=== PATIENT | female | born 1970 | race American Indian/Alaskan Native ===

== ENCOUNTER 2020-09-04 19:23 | Inpatient (IN) | payer MEDICARE ==
[2020-09-04] MEDS ORDERED: ASPIRIN 325 MG TAB PO ONE (21:17)
[2020-09-04 21:41] LABS: Basophils # (Auto) 0.1 K/mm3 (0.0-0.1); Basophils % (Auto) 1.5 % (0.0-1.8); Eosinophils # (Auto) 0.1 K/mm3 (0.0-0.4); Eosinophils % (Auto) 1.4 % (0.0-4.3); Hematocrit 37.6 % (30.3-42.9); Hemoglobin 12.5 gm/dl (10.1-14.3); Lymphocytes # (Auto) 2.5 K/mm3 (1.2-5.4); Lymphocytes % (Auto) 29.9 % (13.4-35.0); Mean Corpuscular HGB Conc 33 % (30-34); Mean Corpuscular Volume 85 fl (79-97); Monocytes # (Auto) 0.6 K/mm3 (0.0-0.8); Platelet Count 323 K/mm3 (140-440); Red Blood Count 4.41 M/mm3 (3.65-5.03); Red Cell Distribution Width 14.9 % (13.2-15.2)
[2020-09-04 22:06] LABS: Alanine Aminotransferase 12 units/L (7-56); Albumin 3.4 g/dL (3.9-5); BUN/Creatinine Ratio 12; Blood Urea Nitrogen 11 mg/dL (7-17); Hemolysis Index 9
--- NOTE | 2020-09-04 22:57 | XRay Report ---
CHEST 2 VIEWS INDICATION / CLINICAL INFORMATION: SOB. COMPARISON: None available. FINDINGS: SUPPORT DEVICES: None. HEART / MEDIASTINUM: No significant abnormality. LUNGS / PLEURA: Mild increased pulmonary vascularity. No focal consolidation No pneumothorax. Signer Name: Mohsen Sanchez MD Signed: 09/04/2020 10:53 PM Workstation Name: [id number]
--- NOTE | 2020-09-05 00:50 | Emergency Department Report ---
ED Shortness of Breath HPI - General Chief Complaint: Dyspnea/Respdistress Stated Complaint: SOB Time Seen by Provider: 09/05/20 00:31 Source: patient, family Mode of arrival: Wheelchair Limitations: No Limitations - History of Present Illness Initial Comments: 49-year-old female, history of hypertension, diabetes, CHF, atrial fibrillation (not on anticoagulation), PE (2007), morbid obesity, presents to ED with shortness of breath. Patient states 5 days ago she and her drove by car to [facility], then to [place] and back to [place]. She reports that she began having some dyspnea on exertion 2 days ago. She reports she noticed some facial swelling and swelling to her lower legs, that has since resolved. Patient denies any chest pain. She denies any orthopnea. She reports a slight cough, denies fever. Patient has not yet been vaccinated for COVID-19. Patient states she has been out of her medications for approximately 1 month. Patient reports she recently moved from [place] to [place] and has been having issues with her Medicaid being transferred to [place], so she has not been able to obtain refills on her medicines. Complaint: shortness of breath -: days(s) (2) Severity: moderate Consistency: intermittent Improves With: rest Worsens With: exertion Associated Symptoms: cough Treatments Prior to Arrival: none - Related Data Allergies Allergy/AdvReac Type Severity Reaction Status Date / Time No Known Allergies Allergy Verified 09/05/20 00:37 ED Review of Systems ROS: Stated complaint: SOB Other details as noted in HPI Comment: All other systems reviewed and negative Constitutional: denies: chills, fever Respiratory: cough, SOB with exertion. denies: orthopnea, SOB at rest Cardiovascular: denies: chest pain Musculoskeletal: other (Patient reports lower extremity swelling, denies pain) ED Past Medical Hx - Past Medical History Previous Medical History?: Yes Hx Hypertension: Yes Hx Congestive Heart Failure: Yes Hx Diabetes: Yes Additional medical history: AFIB, SHANNAN, high cholesterol - Surgical History Past Surgical History?: Yes Hx Cholecystectomy: Yes - Social History Smoking Status: Never Smoker Substance Use Type: None ED Physical Exam - General Limitations: No Limitations General appearance: alert, in no apparent distress, obese - Head Head exam: Present: atraumatic, normocephalic - Eye Eye exam: Present: normal appearance, EOMI - ENT ENT exam: Present: mucous membranes moist - Neck Neck exam: Present: normal inspection - Respiratory Respiratory exam: Present: normal lung sounds bilaterally, other (Slightly tachypneic) - Cardiovascular Cardiovascular Exam: Present: normal rhythm, tachycardia - GI/Abdominal GI/Abdominal exam: Present: soft. Absent: distended, tenderness - Extremities Exam Extremities exam: Present: normal inspection, calf tenderness (Mild, left- sided). Absent: pedal edema - Neurological Exam Neurological exam: Present: alert, oriented X3 - Psychiatric Psychiatric exam: Present: normal affect, normal mood - Skin Skin exam: Present: warm, dry, intact, normal color ED Course Vital Signs 09/04/20 09/05/20 09/05/20 21:11 00:55 02:00 Temperature 100 F H Pulse Rate 118 H 108 H 108 H Respiratory 24 11 L Rate Blood Pressure 227/125 Blood Pressure 236/111 233/149 [Right] O2 Sat by Pulse 98 95 Oximetry - Reevaluation(s) Reevaluation #1: 09/05/20 03:[address] scan secondary to IV infiltrating. Patient is a hard stick. Will order VQ scan. Reevaluation #2: 09/05/20 03:27 Contacted VQ scan tech who states patient's weight is over the limit. Unable to scan. ED Medical Decision Making - Lab Data Result diagrams: 09/04/20 21:29 09/04/20 21:29 - EKG Data -: EKG Interpreted by Me EKG shows normal: sinus rhythm, axis, intervals, QRS complexes Rate: tachycardia (rate 120) - EKG Data Interpretation: other (T wave inversions aVL) - Radiology Data Radiology results: report reviewed, image reviewed - Medical Decision Making 49-year-old female presents to ED with shortness of breath. Patient is tac hycardic, hypertensive. She is not hypoxic. Patient reports she has been off of her medications for approximately 1 month. This x-ray shows some pulmonary vascular congestion. Lasix given. D-dimer was also slightly elevated. CTA chest and VQ scan were attempted, but unsuccessful secondary to IV infiltration and patient's weight being over the limit. I spoke with Dr. Boggs for admission. We will treat prophylactically with Lovenox and they will try to get another CTA on patient while she is admitted. - Differential Diagnosis CHF, hypertensive emergency, PE Critical care attestation.: If time is entered above; I have spent that time in minutes in the direct care of this critically ill patient, excluding procedure time. ED Disposition Clinical Impression: Dyspnea, Pulmonary edema, Hypertensive emergency Disposition: -09 OP ADMIT IP TO THIS HOSP Is pt being admited?: Yes Condition: Stable Instructions: Pulmonary Edema (ED), Hypertension (ED) Referrals: PRIMARY CARE, [Primary Care Provider] - 3-5 Days Time of Disposition: 03:43
[2020-09-05] MEDS ORDERED: hydrALAZINE 20 MG/1 ML INJ IV ONE ×2 (00:56→18:50)
[2020-09-05 01:32] LABS: INR 1.12 (0.87-1.13)
[2020-09-05 01:33] LABS: Partial Thromboplastin Time 32.6 Sec. (24.2-36.6)
[2020-09-05] MEDS ORDERED: FUROSEMIDE 40 MG/4 ML INJ IV ONE (03:14)
[2020-09-05] MEDS ORDERED: ENOXAPARIN 100 MG/1 ML INJ SUB-Q ONE ×2 (03:30→06:00)
--- NOTE | 2020-09-05 03:54 | History and Physical Report ---
History of Present Illness Date of examination: 09/04/20 Date of admission: 09/04/20 Chief complaint: Shortness of breath Abdominal pain History of present illness: 49-year-old female, history of hypertension, diabetes, CHF, atrial fibrillation (not on anticoagulation), PE (2007), morbid obesity, presents to ED with shortness of breath. Patient states 5 days ago she and her drove by car to [facility], then to [place] and back to [place]. She reports that she began having some dyspnea on exertion 2 days ago. She reports she noticed some facial swelling and swelling to her lower legs, that has since resolved. Patient denies any chest pain. She denies any orthopnea. She reports a slight cough, denies fever. Patient has not yet been vaccinated for COVID-19. Patient states she has been out of her medications for approximately 1 month. Patient reports she recently moved from [place] to [place] and has been having issues with her Medicaid being transferred to [place], so she has not been able to obtain refills on her medicines. ED work-up shows WBC 8.3 hemoglobin 12.5, platelets 323 D-dimer 298.55, sodium 136, potassium 4.2, creatinine 0.9 blood sugar 270. Checks x-ray done mildly increased pulmonary vascularity. VQ scan ordered patient so is too heavy for VQ scan Mildly elevated D-dimer. Blood pressure in the ED 236/111, at 233/149, and 227/123. Patient has been given hydralazine, clonidine and IV furosemide in ED. patient blood pressure still elevated or out. Her home blood pressure medicine resumed. May transfer patient to MICU or ICU if blood pressure is continue to be elevated and blood pressure medicine drip. Patient seen in ED at bedside. Patient is alert oriented x3. Patient said she does not feel well. She reported nausea feeling and abdominal discomfort. She reports a history of diabetes, high blood pressure, CHF, and hyperlipidemia. She denies tobacco, alcohol, and illicit drug use. I reviewed the medication record, and medical record and vital signs. Past History Past Medical History: diabetes, heart failure, hyperlipidemia Past Surgical History: cholecystectomy Social history: lives with family Family history: diabetes, hypertension Medications and Allergies Allergies Allergy/AdvReac Type Severity Reaction Status Date / Time No Known Allergies Allergy Verified 09/05/20 00:37 Review of Systems Constitutional: weakness Ears, nose, mouth and throat: no epistaxis Cardiovascular: chest pain, shortness of breath, dyspnea on exertion, high blood pressure, leg edema Respiratory: no wheezing Gastrointestinal: abdominal pain, nausea, heartburn, no melena Rectal: no hemorrhoids Integumentary: no rash, no pruritis Neurological: no confusion Psychiatric: anxiety, no disorientation, no hallucinations Endocrine: high blood sugars Hematologic/Lymphatic: no easy bruising, no easy bleeding Allergic/Immunologic: no urticaria Exam - Constitutional Vitals: Temp Pulse Resp BP Pulse Ox 100 F H 108 H 11 L 227/125 95 09/04/20 21:11 09/05/20 02:00 09/05/20 00:55 09/05/20 02:00 09/05/20 00:55 General appearance: Present: mild distress, obese - EENT Eyes: Present: PERRL ENT: hearing intact, clear oral mucosa - Neck Neck: Present: supple, normal ROM - Respiratory Respiratory effort: normal Respiratory: bilateral: CTA - Cardiovascular Heart Sounds: Present: S1 & S2. Absent: rub, click - Extremities Extremities: pulses symmetrical, No edema Peripheral Pulses: within normal limits - Abdominal General gastrointestinal: Present: soft, non-tender, non-distended, normal bowel sounds Female genitourinary: Present: normal - Integumentary Integumentary: Present: clear, warm, dry - Musculoskeletal Musculoskeletal: gait normal, strength equal bilaterally - Psychiatric Psychiatric: appropriate mood/affect, intact judgment & insight, cooperative - Neurologic Neurologic: CNII-XII intact, moves all extremities - Allied Health Allied health notes reviewed: nursing, PT HEART Score - HEART Score Troponin: Troponin T 0.011 ng/mL (0.00-0.029) 09/05/20 00:21 Results - Labs CBC & Chem 7: 09/04/20 21:29 09/04/20 21:29 Labs: Abnormal lab results 09/04/20 09/05/20 09/05/20 Range/Units 21:29 00:59 00:59 D-Dimer 298.55 H (0-234) ng/mlDDU Sodium 136 L (137-145) mmol/L Glucose 270 H (65-100) mg/dL NT-Pro-B Natriuret Pep 1925 H (0-450) pg/mL Total Protein 6.2 L (6.3-8.2) g/dL Albumin 3.4 L (3.9-5) g/dL Assessment and Plan - Patient Problems (1) Hypertensive emergency Current Visit: Yes Status: Acute Plan to address problem: Monitor blood pressure As needed hydralazine Resume home antihypertensive. We will transfer to the unit on blood pressure medicine drip if blood pressure is not controlled Discussed medication compliance. (2) Pulmonary edema Current Visit: Yes Status: Acute Plan to address problem: Diuretics twice daily Serial checks x-ray Monitor potassium level while on furosemide (3) Acute on chronic diastolic CHF (congestive heart failure) Current Visit: Yes Status: Acute Plan to address problem: Patient with elevated BNP and patient has a history of CHF with A. fib Aspirin, statin, losartan, and oxygen supplement if needed Cardiology consult and echocardiogram ordered. (4) Morbid (severe) obesity due to excess calories Current Visit: Yes Status: Acute Plan to address problem: Discussed lifestyle modification Healthy diet, weight management regular exercise (5) Diabetes Current Visit: Yes Status: Acute Plan to address problem: Monitor blood sugar with sliding scale Check hemoglobin A1c Resume home antihypertensive (6) Gastritis Current Visit: Yes Status: Acute Plan to address problem: Patient reported abdominal pain with nausea as needed pain medicine Continue antiemetics (7) DVT prophylaxis Current Visit: Yes Status: Acute Plan to address problem: Therapeutic Lovenox
[2020-09-05] MEDS ORDERED: cloNIDine 0.2 MG TAB PO ONE (03:58)
[2020-09-05] MEDS ORDERED: MAGNESIUM HYDROXIDE (MOM) ORAL LIQD UDC PO PRN (04:04)
[2020-09-05] MEDS ORDERED: ALUM-MAG HYDROXIDE-SIMETHICONE 200-200-20MG/5ML ORAL LIQD 30 ML PO PRN (04:04)
[2020-09-05] MEDS ORDERED: NITROGLYCERIN 0.4 MG TAB SUBL SL PRN (04:04)
[2020-09-05] MEDS ORDERED: ALPRAZolam 0.25 MG TAB PO PRN (04:04)
[2020-09-05 05:41] LABS: Bilirubin,Urine NEG (Negative); Blood,Urine NEG (Negative); Color,Urine Yellow (Yellow); Mucus,Urine FEW /HPF; Urobilinogen,Urine < 2.0 mg/dL (<2.0)
[2020-09-05 05:43] LABS: Protein,Urine >500 mg/dL (Negative)
[2020-09-05] MEDS: FUROSEMIDE 40 MG/4 ML INJ IV SCH ×2 (06:04→17:35)
--- NOTE | 2020-09-05 07:26 | Cat Scan Report ---
CT ABDOMEN AND PELVIS WITHOUT CONTRAST HISTORY: Patient complains of abdominal pain with nausea. COMPARISON: None. TECHNIQUE: CT images of the abdomen and pelvis were obtained without administration of intravenous co ntrast. All CT scans at this location are performed using CT dose reduction for ALARA by means of au tomated exposure control. FINDINGS: Lungs/bones: Small bilateral effusions. Groundglass opacities with somewhat rounded densities within the right lower lung. Abdomen/pelvis: Within limits of a noncontrast exam the liver, spleen, adrenal glands and pancreas a ppear normal. Bilateral kidneys appear normal. Uterus is distended. Contrast is seen within the bladd er. No free fluid is seen in the abdomen or pelvis. No bowel obstruction is seen. No evidence for madeleine endicitis. Degenerative changes seen throughout spine. IMPRESSION: 1. Uterus is distended with probable uterine fibroids. 2. No bowel obstruction is seen. No focal inflammatory change. 3. Rounded densities and opacities within the lower lungs with bilateral effusions. Opacities could r epresent pneumonia/infiltrate however follow-up to document resolution. Signer Name: Mohsen Sanchez MD Signed: 09/05/2020 7:21 AM Workstation Name: [id number]
[2020-09-05] MEDS: hydrALAZINE 100 MG TAB PO SCH ×3 (07:42→20:10)
[2020-09-05] MEDS: INSULIN LISPRO 100 UNIT/ML SUB-Q SCH ×3 (07:43→17:35)
[2020-09-05] MEDS: ASPIRIN EC 81 MG TAB PO SCH (09:09)
[2020-09-05] MEDS: LOSARTAN 50 MG TAB PO SCH (09:09)
[2020-09-05] MEDS: POTASSIUM CHLORIDE ER 20 MEQ TAB PO SCH ×2 (09:10→22:38)
[2020-09-05] MEDS ORDERED: carvediloL 3.125 MG TAB PO SCH (10:00)
--- NOTE | 2020-09-05 12:20 | Vascular Lab Report ---
DUPLEX DOPPLER LOWER EXTREMITY VEINS, BILATERAL INDICATION / CLINICAL INFORMATION: Possible dvt. TECHNIQUE: Duplex doppler imaging was performed through the veins of both lower extremities using cory ous compression and other maneuvers. COMPARISON: None available. FINDINGS: RIGHT COMMON FEMORAL VEIN: Negative. RIGHT FEMORAL VEIN: Negative. RIGHT POPLITEAL VEIN: Negative. RIGHT CALF VEINS: Negative. LEFT COMMON FEMORAL VEIN: Negative. LEFT FEMORAL VEIN: Negative. LEFT POPLITEAL VEIN: Negative. LEFT CALF VEINS: Negative. ADDITIONAL FINDINGS: None. IMPRESSION: 1. No sonographic evidence for DVT in either lower extremity. Scribed by: Mayra Hughes RDMS, RVT Scribed: 09/05/2020 11:11 AM I have reviewed the images, agree with this report, and edited this report as needed. Signer Name: Keagan Crawley MD Signed: 09/05/2020 12:16 PM Workstation Name: [id number]
--- NOTE | 2020-09-05 13:19 | Consultation ---
History of Present Illness Consult date: 09/05/20 Requesting physician: JUANJOSE MEREDITH Consult reason: congestive heart failure History of present illness: This patient is a 49-year-old female with a significant history of CHF, A. fib (not on AC), diabetes, hypertension, pulmonary embolism 2007, SHANNAN noncompliant with CPAP, BMI 61. She is previously unknown to our practice and is not currently followed by cardiology or primary care. Patient presents to [facility] ER with chief complaint of shortness of breath and tachycardia x1 day. Patient recently traveled by car to [place] and back prior to onset of symptoms. She has previously been diagnosed with heart failure unknown EF and is prescribed home losartan and hydrochlorothiazide. Patient has been out of meds x30 days after recent move to [place] and no current providers. BNP is noted to be elevated on admission. D-dimer is noted to be elevated. Of note patient states significant allergy to lisinopril resulting in angioedema. Past History Past Medical History: diabetes, heart failure, hyperlipidemia, other (See HPI) Past Surgical History: cholecystectomy Social history: lives with family Family history: diabetes, hypertension Medications and Allergies Allergies Allergy/AdvReac Type Severity Reaction Status Date / Time No Known Allergies Allergy Verified 09/05/20 00:37 Active Meds: Active Medications Al Hydrox/Mg Hydrox/Simethicone (Alum-Mag Hydroxide-Simethicone [id number]/5ml Oral Liqd 30 Ml) 30 ml PO Q4H PRN PRN Reason: Indigestion Alprazolam (Alprazolam 0.25 Mg Tab) 0.25 mg PO Q8H PRN PRN Reason: Anxiety Aspirin (Aspirin Ec 81 Mg Tab) 81 mg PO QDAY [facility] Last Admin: 09/05/20 09:09 Dose: 81 mg Documented by: Carvedilol (Carvedilol 3.125 Mg Tab) 3.125 mg PO BID [facility] Last Admin: 09/05/20 09:09 Dose: 3.125 mg Documented by: Enoxaparin Sodium (Enoxaparin 100 Mg/1 Ml Inj) 180 mg 1 mg/kg (180 mg) SUB-Q Q12HR [facility]; Protocol Furosemide (Furosemide 40 Mg/4 Ml Inj) 40 mg IV BID@0600,1800 [facility] Last Admin: 09/05/20 06:04 Dose: Not Given Documented by: Hydralazine HCl (Hydralazine 100 Mg Tab) 100 mg PO TID [facility] Last Admin: 09/05/20 07:42 Dose: 100 mg Documented by: Insulin Human Lispro (Insulin Lispro 100 Unit/Ml) 0 unit SUB-Q AC [facility]; Protocol Last Admin: 09/05/20 07:43 Dose: 3 unit Documented by: Losartan Potassium (Losartan 50 Mg Tab) 100 mg PO QDAY [facility] Last Admin: 09/05/20 09:09 Dose: 100 mg Documented by: Magnesium Hydroxide (Magnesium Hydroxide (Mom) Oral Liqd Udc) 30 ml PO Q4H PRN PRN Reason: Constipation Nitroglycerin (Nitroglycerin 0.4 Mg Tab Subl) 0.4 mg SL .Q5MIN PRN PRN Reason: Chest Pain Ondansetron HCl (Ondansetron 4 Mg/2 Ml Inj) 4 mg IV Q8H PRN PRN Reason: Nausea And Vomiting Potassium Chloride (Potassium Chloride Er 20 Meq Tab) 20 meq PO BID [facility] Last Admin: 09/05/20 09:10 Dose: 20 meq Documented by: Sodium Chloride (Sodium Chloride 0.9% 10 Ml Flush Syringe) 10 ml IV BID [facility] Last Admin: 09/05/20 09:10 Dose: 10 ml Documented by: Sodium Chloride (Sodium Chloride 0.9% 10 Ml Flush Syringe) 10 ml IV PRN PRN PRN Reason: LINE FLUSH Review of Systems Constitutional: weight loss, weight gain, fever, chills, sweats Ears, nose, mouth and throat: ear pain, ear discharge, nose pain, nasal congestion, nasal discharge Cardiovascular: orthopnea, edema, shortness of breath, dyspnea on exertion, paroxysmal nocturnal dyspnea, high blood pressure, leg edema, no chest pain, no palpitations, no rapid/irregular heart beat, no syncope, no lightheadedness, no claudication, no phlebitis, no decreased exercise tolerance Respiratory: no cough, no hemoptysis, no shortness of breath Gastrointestinal: no abdominal pain, no nausea, no vomiting, no diarrhea Genitourinary Female: no flank pain Musculoskeletal: no neck stiffness, no neck pain, no shooting arm pain, no arm numbness/tingling, no low back pain, no shooting leg pain Integumentary: no rash, no pruritis, no redness, no sores, no wounds, no jaundice Neurological: no head injury, no paralysis, no weakness, no parathesias, no numbness, no tingling, no seizures, no syncope Psychiatric: no anxiety Endocrine: no cold intolerance, no heat intolerance Hematologic/Lymphatic: no easy bruising, no easy bleeding Allergic/Immunologic: no urticaria Physical Examination Last Vital Signs Temp 100 F H 09/04/20 21:11 Pulse 60 09/05/20 11:19 Resp 19 09/05/20 08:00 BP 184/100 09/05/20 09:09 Pulse Ox 100 09/05/20 11:19 General appearance: no acute distress HEENT: Positive: PERRL, Normocephaly, Mucus Membranes Moist Cardiac: Positive: Reg Rate and Rhythm, S1/S2 Lungs: Positive: Decreased Breath Sounds Neuro: Positive: Grossly Intact Abdomen: Positive: Unremarkable, Soft Skin: Negative: Rash, Wound Musculoskeletal: No Pain Extremities: Present: upper extr. pulses, lower extr. pulses, +1 Edema Results 09/04/20 21:29 09/04/20 21:29 Cardiac Enzymes 09/04/20 Range/Units 21:29 AST 13 (5-40) units/L Coagulation 09/05/20 Range/Units 00:59 PT 14.9 (12.2-14.9) Sec. INR 1.12 (0.87-1.13) APTT 32.6 (24.2-36.6) Sec. CBC 09/04/20 Range/Units 21:29 WBC 8.3 (4.5-11.0) K/mm3 RBC 4.41 (3.65-5.03) M/mm3 Hgb 12.5 (10.1-14.3) gm/dl Hct 37.6 (30.3-42.9) % Plt Count 323 (140-440) K/mm3 Lymph # (Auto) 2.5 (1.2-5.4) K/mm3 [place] # (Auto) 0.6 (0.0-0.8) K/mm3 Eos # (Auto) 0.1 (0.0-0.4) K/mm3 Baso # (Auto) 0.1 (0.0-0.1) K/mm3 Comprehensive Metabolic Panel 09/04/20 Range/Units 21:29 Sodium 136 L (137-145) mmol/L Potassium 4.2 (3.6-5.0) mmol/L Chloride 100.9 (98-107) mmol/L Carbon Dioxide 25 (22-30) mmol/L BUN 11 (7-17) mg/dL Creatinine 0.9 (0.6-1.2) mg/dL Glucose 270 H (65-100) mg/dL Calcium 9.0 (8.4-10.2) mg/dL AST 13 (5-40) units/L ALT 12 (7-56) units/L Alkaline Phosphatase 119 (35-129) units/L Total Protein 6.2 L (6.3-8.2) g/dL Albumin 3.4 L (3.9-5) g/dL - Imaging and Cardiology Echo: pending EKG: report reviewed, image reviewed EKG interpretations - Telemetry EKG Rhythm: Sinus Tachycardia - EKG Sinus rhythms and dysrhythmias: sinus tachycardia Assessment and Plan Acute on chronic heart failure reduced ejection fraction in setting of cardiomyopathy * Patient is currently chest pain-free with significantly improved shortness of breath. Troponins are negative x3. AMI ruled out. * Optimize volume control: Continue Lasix 40 mg IV twice daily. * Continue GDMT. Elevated D-dimer * Bilateral BLE duplex ultrasound is negative for DVT. * VQ scan canceled due to BMI. CTA chest incomplete due to infiltrated IV. * Currently on Lovenox therapeutic dose Hypertension * Optimize antihypertensive regimen: Increase Coreg to 12.5 twice daily, continue losartan 100 mg daily, nifedipine XL 90 daily. SHANNAN on CPAP * Patient states she has completed sleep study and been recommended to wear CPAP at night but is currently noncompliant due to insurance issues. CPAP nightly is ordered. DVT prophylaxis * Lovenox SQ We will follow This patient was seen in conjunction with Dr Jurgen Collins who agrees with this assessment and plan of care - Patient Problems (1) Acute on chronic diastolic CHF (congestive heart failure) Current Visit: Yes Status: Acute (2) Elevated d-dimer Current Visit: Yes Status: Acute (3) Hypertension Current Visit: Yes Status: Chronic (4) DVT prophylaxis Current Visit: Yes Status: Acute (5) Diabetes Current Visit: Yes Status: Chronic
--- NOTE | 2020-09-05 15:50 | Event Note ---
Date: 09/05/20 Patient seen and examined This is the second visit after midnight Vitals noted, stable Patient complains of nausea and difficulty to breathe, diminished breath sound auscultated bilaterally, S1 and S2 positive 49-year-old female, history of hypertension, diabetes, CHF, atrial fibrillation (not on anticoagulation), PE (2007), morbid obesity, presents to ED with shortness of breath. Patient noted to have elevated D-dimer but unable to do VQ scan because patient is overweight. CTA chest could not be done because iv got infiltrated. Continue therapeutic dose of Lovenox for now. Continue CHF protocol, lower extremity Dopplers negative for DVT We will attempt CTA of the chest again tomorrow Patient did not receive COVID-19 vaccine and due to her presenting complaint will Rule out for Covid Ordered for Covid test -It took me about 28 minutes to reevaluate and reasses this patient, discussed with RN/CM, review medical documents, lab results, imaging, medication list and placing order.
[2020-09-05] MEDS ORDERED: ACETAMINOPHEN 325 MG TAB PO PRN (17:37)
[2020-09-05] MEDS: ONDANSETRON 4 MG/2 ML INJ IV PRN (18:35)
[2020-09-05] MEDS ORDERED: METOCLOPRAMIDE 10 MG/2 ML INJ IV ONE (19:00)
[2020-09-05] MEDS ORDERED: ENOXAPARIN 100 MG/1 ML INJ SUB-Q SCH (22:00)
[2020-09-05] MEDS: carvediloL 3.125 MG TAB PO SCH (22:39)
[2020-09-06] MEDS ORDERED: dilTIAZem 25 MG/5 ML INJ IV ONE (04:00)
[2020-09-06] MEDS: FUROSEMIDE 40 MG/4 ML INJ IV SCH ×2 (05:42→19:42)
[2020-09-06] MEDS: ONDANSETRON 4 MG/2 ML INJ IV PRN (06:49)
[2020-09-06] MEDS: INSULIN LISPRO 100 UNIT/ML SUB-Q SCH ×3 (09:08→19:41)
[2020-09-06] MEDS: LOSARTAN 50 MG TAB PO SCH (09:42)
[2020-09-06] MEDS: carvediloL 3.125 MG TAB PO SCH (09:47)
[2020-09-06] MEDS: hydrALAZINE 100 MG TAB PO SCH ×3 (09:49→21:32)
[2020-09-06] MEDS: ASPIRIN EC 81 MG TAB PO SCH (09:49)
[2020-09-06] MEDS: POTASSIUM CHLORIDE ER 20 MEQ TAB PO SCH ×2 (09:49→21:39)
[2020-09-06] MEDS ORDERED: ENOXAPARIN 150 MG/1 ML INJ SUB-Q SCH (10:00)
[2020-09-06] MEDS: PANTOPRAZOLE 40 MG INJ IV SCH ×2 (12:56→21:38)
[2020-09-06] MEDS ORDERED: ONDANSETRON 4 MG/2 ML INJ IV PRN (13:00)
--- NOTE | 2020-09-06 14:15 | Progress Note ---
Assessment and Plan --Hypertensive emergency Monitor blood pressure As needed hydralazine Resumed home antihypertensive. Adjust antihypertensive dose for better BP control Discussed medication compliance. -- Pulmonary edema with Acute hypoxic Respiratory Failure Due to underlying CHF, diuretics twice daily Serial chest x-ray Monitor potassium level while on furosemide --Covid PUI, ruled out with a negative test -- Acute on chronic systolic CHF (congestive heart failure), EF 30 to 35% Patient with elevated BNP and patient has a history of CHF with A. fib Aspirin, statin, losartan, and oxygen supplement if needed Cardiology consult and echocardiogram ordered. -- Morbid (severe) obesity due to excess calories Discussed lifestyle modification Healthy diet, weight management regular exercise -- Diabetes Monitor blood sugar with sliding scale Check hemoglobin A1c -- Gastritis Patient reported abdominal pain with nausea as needed pain medicine, CT abdomen pelvis without any acute intra-abdominal finding Continue antiemetics, PPI Will consult GI for persistent symptoms -- DVT prophylaxis Therapeutic Lovenox Brief history: 49-year-old female, history of hypertension, diabetes, CHF, atrial fibrillation (not on anticoagulation), PE (2007), morbid obesity, presents to ED with shortness of breath. Patient noted to have elevated BNP and elevated D-dimer but unable to do VQ scan because patient is overweight. CTA chest could not be done because iv got infiltrated. Patient admitted for possible PE/DVT pain CHF exacerbation Daily clinical course: 09/05/20: Continue therapeutic dose of Lovenox for now. Continue CHF protocol, lower extremity Dopplers negative for DVT We will attempt CTA of the chest again tomorrow Patient did not receive COVID-19 vaccine and due to her presenting complaint will Rule out for Covid Ordered for Covid test 09/06/20:. Pending CTA chest today. Patient continued to complains of nausea and vomiting. Will consult GI, continue antiemetics and PPI. Change diet to clear liquid. Covid test is negative. 2D echo showed EF of 30 to 35%. Continue Lasix IV, transfer to telemetry when bed available Subjective Date of service: 09/06/20 Interval history: Patient seen and examined. Medical records and medication list reviewed. No acute event overnight noted by the RN. Patient denies any chest pain but continue to complains of difficulty breathing along with nausea and vomiting Discussed plan of care at bedside with patient. Objective - Exam Narrative Exam: GENERAL: well-developed morbidly obese -Mosoth[place] female lying on bed appeared to be in no discomfort. HEENT: Normocephalic. Atraumatic. No conjunctival congestion or icterus. Patient has moist mucous membranes. NECK: Supple. Trachea midline. CHEST/LUNGS: Diminished breath sounds auscultated bilaterally, breathing on nasal cannula. No wheezes HEART/CARDIOVASCULAR: Regular in rate and rhythm. S1 and S2 positive. ABDOMEN: Abdomen is soft, nontender. Patient has normal bowel sounds. SKIN: There is no rash. Warm and dry. NEURO: No focal motor deficit. Follows command. MUSCULOSKELETAL: No joint effusion or tenderness. EXTRIMITY: No edema, no cyanosis or clubbing. PSYCH: Cooperative. - Constitutional Vitals: Vital Signs - 12hr 09/06/20 09/06/20 09/06/20 05:17 09:42 09:47 Temperature 98.8 F Pulse Rate 116 H 111 H 111 H Respiratory 20 Rate Blood Pressure 201/117 225/108 215/108 O2 Sat by Pulse 92 Oximetry - Labs CBC & Chem 7: 09/07/20 07:15 09/07/20 07:15 Labs: Abnormal lab results 09/05/20 09/05/20 09/05/20 Range/Units 13:45 17:23 22:11 POC Glucose 280 H 214 H 268 H (70-105) mg/dL 09/06/20 09/06/20 Range/Units 07:43 12:02 POC Glucose 276 H 226 H (70-105) mg/dL HEART Score - HEART Score Troponin: Troponin T < 0.010 ng/mL (0.00-0.029) 09/05/20 03:15
--- NOTE | 2020-09-06 15:00 | Progress Note ---
Assessment and Plan Acute on chronic heart failure reduced ejection fraction in setting of cardiomyopathy * Patient is currently chest pain-free. Troponins are negative x3. AMI ruled out. * Echocardiogram reviewed (09/05/2020): LVEF is 30 to 35%. Left ventricle is normal sized. LV SF is moderate to severely decreased. Mild LVH. Moderate to severe global hypokinesis of the left ventricle. * Optimize volume control: Continue Lasix 40 mg IV twice daily. * Continue GDMT. * Plan for Lexiscan MPI stress test on Friday (09/08/2020). Elevated D-dimer * Bilateral BLE duplex ultrasound is negative for DVT. * VQ scan canceled due to BMI. CTA chest incomplete due to infiltrated IV. * Currently on Lovenox therapeutic dose Hypertension * Optimize antihypertensive regimen: Increase Coreg to 25 twice daily, continue losartan 100 mg daily, Hydralazine 100mg TID. Initiate Clonidine 0.2mg PO BID with hold parameters. SHANNAN on CPAP * Patient states she has completed sleep study and been recommended to wear CPAP at night but is currently noncompliant due to insurance issues. CPAP nightly is ordered. DVT prophylaxis * Lovenox SQ Continue diuresis. Anticipate Lexiscan MPI stress test on Friday. We will follow This patient was seen in conjunction with Dr Jurgen Collins who agrees with this assessment and plan of care - Patient Problems (1) Acute on chronic diastolic CHF (congestive heart failure) Current Visit: Yes Status: Acute (2) Elevated d-dimer Current Visit: Yes Status: Acute (3) Hypertension Current Visit: Yes Status: Chronic (4) DVT prophylaxis Current Visit: Yes Status: Acute (5) Diabetes Current Visit: Yes Status: Chronic Subjective Date of service: 09/06/20 Principal diagnosis: SOB Interval history: Patient resting comfortably in bed. No shortness of breath or chest pain overnight. Patient is complaining of significant nausea/vomiting overnight. Telemetry reviewed: Sinus rhythm 96. No events Objective Last Vital Signs Temp 98.8 F 09/06/20 05:17 Pulse 111 H 09/06/20 09:47 Resp 20 09/06/20 05:17 BP 215/108 09/06/20 09:47 Pulse Ox 92 09/06/20 05:17 - Physical Examination HEENT: Positive: PERRL, Normocephaly, Mucus Membranes Moist Cardiac: Positive: Reg Rate and Rhythm, S1/S2 Lungs: Positive: Normal Exam, clear to auscultation, Normal Breath Sounds Neuro: Positive: Grossly Intact Abdomen: Positive: Unremarkable, Soft Skin: Negative: Rash, Wound Musculoskeletal: No Pain Extremities: Present: upper extr. pulses, lower extr. pulses, +1 Edema - Imaging and Cardiology EKG: report reviewed, image reviewed Nuclear stress test: pending Echo: report reviewed (Echocardiogram reviewed (09/05/2020): LVEF is 30 to 35%. Left ventricle is normal sized. LV SF is moderate to severely decreased. Mild LVH. Moderate to severe global hypokinesis of the left ventricle.) - EKG Sinus rhythms and dysrhythmias: sinus tachycardia
[2020-09-06] MEDS ORDERED: carvediloL 3.125 MG TAB PO SCH (15:02)
--- NOTE | 2020-09-06 16:44 | Cat Scan Report ---
CTA CHEST WITH IV CONTRAST INDICATION / CLINICAL INFORMATION: Possible PE, [id number] 100ml. TECHNIQUE: Axial CT images were obtained through the chest after injection of 100 cc Omnipaque 350 mg percent IV contrast. 3 plane MIP and/or 3D reconstructions were produced. All CT scans at this location are per formed using CT dose reduction for ALARA by means of automated exposure control. COMPARISON: None FINDINGS: PULMONARY ARTERIES: No pulmonary emboli. THORACIC AORTA: No significant abnormality. HEART: Cardiac enlargement CORONARY ARTERIES: No significant calcification. PLEURA: No pleural effusion. No pneumothorax. LYMPH NODES: No significant adenopathy. LUNGS: No acute air space or interstitial disease. ADDITIONAL FINDINGS: None. UPPER ABDOMEN: No acute findings. SKELETAL STRUCTURES: No significant osseous abnormality. IMPRESSION: 1. No CT evidence for pulmonary embolism. 2. Cardiomegaly Signer Name: Arnie Pulido MD Signed: 09/06/2020 4:39 PM Workstation Name: [id number]
[2020-09-06] MEDS ORDERED: hydrALAZINE 20 MG/1 ML INJ IV PRN (19:07)
--- NOTE | 2020-09-06 19:17 | Electrocardiograph Report ---
[facility] Test Date: 2020-09-04 Test Time: 21:20:42 Pat Name: PRESTON MEJIA Department: Room: A359 Gender: F Catheterization Laboratory Technician: RAMAN : 1970 Requested By: MJ CHAHAL Order Number: [id number] Reading MD: Elpidio Sebastian Measurements Intervals [place] Rate: 120 P: 56 WA: 157 QRS: -2 QRSD: 93 T: 91 QT: 328 QTc: 464 Interpretive Statements Sinus tachycardia Ventricular premature complex Probable left atrial enlargement Anterior infarct, old Nonspecific T abnormalities, lateral leads No previous ECG available for comparison Electronically Signed On 09-06-2020 19:16:47 EDT by Elpidio Sebastian
--- NOTE | 2020-09-06 19:22 | Electrocardiograph Report ---
[facility] Test Date: 2020-09-05 Test Time: 08:08:40 Pat Name: PRESTON MEJIA Department: Room: A359 Gender: F Councilor: SUZY : 1970 Requested By: MJ CHAHAL Order Number: [id number] Reading MD: Elpidio Sebastian Measurements Intervals [place] Rate: 110 P: 40 ID: [id number] QRS: 1 QRSD: 90 T: 113 QT: 364 QTc: 494 Interpretive Statements Sinus tachycardia Anterior infarct, age indeterminate No previous ECG available for comparison Electronically Signed On 09-06-2020 19:22:01 EDT by Elpidio Sebastian
[2020-09-06] MEDS: cloNIDine 0.2 MG TAB PO SCH (19:40)
[2020-09-06] MEDS: ENOXAPARIN 40 MG/0.4 ML INJ SUB-Q SCH (21:39)
[2020-09-06] MEDS: carvediloL 25 MG TAB PO SCH (21:39)
[2020-09-06] MEDS: METOCLOPRAMIDE 10 MG/2 ML INJ IV PRN (21:44)
[2020-09-07] MEDS: FUROSEMIDE 40 MG/4 ML INJ IV SCH ×2 (06:49→17:34)
[2020-09-07 08:22] LABS: Basophils % (Auto) 0.7 % (0.0-1.8); Eosinophils % (Auto) 0.3 % (0.0-4.3); Hematocrit 38.2 % (30.3-42.9); Hemoglobin 12.7 gm/dl (10.1-14.3); Lymphocytes # (Auto) 1.8 K/mm3 (1.2-5.4); Lymphocytes % (Auto) 28.3 % (13.4-35.0); Mean Corpuscular HGB Conc 33 % (30-34); Mean Corpuscular Volume 86 fl (79-97); Monocytes # (Auto) 0.5 K/mm3 (0.0-0.8); Monocytes % (Auto) 8.3 % (0.0-7.3); Platelet Count 284 K/mm3 (140-440); Red Blood Count 4.44 M/mm3 (3.65-5.03); Red Cell Distribution Width 15.4 % (13.2-15.2)
[2020-09-07 08:36] LABS: BUN/Creatinine Ratio 16; Blood Urea Nitrogen 14 mg/dL (7-17); Calcium 8.7 mg/dL (8.4-10.2); Hemolysis Index 17
[2020-09-07] MEDS: INSULIN LISPRO 100 UNIT/ML SUB-Q SCH ×4 (09:29→17:33)
[2020-09-07] MEDS: carvediloL 25 MG TAB PO SCH ×2 (09:30→21:25)
[2020-09-07] MEDS: ASPIRIN EC 81 MG TAB PO SCH (09:30)
[2020-09-07] MEDS: LOSARTAN 50 MG TAB PO SCH (09:30)
[2020-09-07] MEDS: hydrALAZINE 100 MG TAB PO SCH ×3 (09:30→19:55)
[2020-09-07] MEDS: cloNIDine 0.2 MG TAB PO SCH ×2 (09:30→22:00)
[2020-09-07] MEDS: POTASSIUM CHLORIDE ER 20 MEQ TAB PO SCH ×2 (09:31→21:25)
[2020-09-07] MEDS: PANTOPRAZOLE 40 MG INJ IV SCH ×2 (09:31→21:25)
--- NOTE | 2020-09-07 11:45 | Progress Note ---
Assessment and Plan --Hypertensive emergency Monitor blood pressure As needed hydralazine Resumed home antihypertensive. Adjust antihypertensive dose for better BP control Discussed medication compliance. -- Pulmonary edema with Acute hypoxic Respiratory Failure Due to underlying CHF, diuretics twice daily Serial chest x-ray Monitor potassium level while on furosemide --Covid PUI, ruled out with a negative test -- Acute on chronic systolic CHF (congestive heart failure), EF 30 to 35% Patient with elevated BNP and patient has a history of CHF with A. fib Aspirin, statin, losartan, and oxygen supplement if needed Cardiology consult and echocardiogram ordered. -- Morbid (severe) obesity due to excess calories Discussed lifestyle modification Healthy diet, weight management regular exercise --Elevated D-dimer, CTA chest negative for PE, lower extremity Doppler for any acute DVT -- Diabetes Monitor blood sugar with sliding scale Check hemoglobin A1c -- Gastritis Patient reported abdominal pain with nausea as needed pain medicine, CT abdomen pelvis without any acute intra-abdominal finding Continue antiemetics, PPI Will consult GI for persistent symptoms -- DVT prophylaxis Lovenox Brief history: 49-year-old female, history of hypertension, diabetes, CHF, atrial fibrillation (not on anticoagulation), PE (2007), morbid obesity, presents to ED with shortness of breath. Patient noted to have elevated BNP and elevated D-dimer but unable to do VQ scan because patient is overweight. CTA chest could not be done because iv got infiltrated. Patient admitted for possible PE/DVT pain CHF exacerbation Daily clinical course: 09/05/20: Continue therapeutic dose of Lovenox for now. Continue CHF protocol, lower extremity Dopplers negative for DVT We will attempt CTA of the chest again tomorrow Patient did not receive COVID-19 vaccine and due to her presenting complaint will Rule out for Covid Ordered for Covid test 09/06/20:. Pending CTA chest today. Patient continued to complains of nausea and vomiting. Will consult GI, continue antiemetics and PPI. Change diet to clear liquid. Covid test is negative. 2D echo showed EF of 30 to 35%. Continue Lasix IV, transfer to telemetry when bed available 09/07/20; CTA chest negative for any acute PE. Stop therapeutic dose of Lovenox and changed to DVT prophylaxis only. Continue IV diuresis, follow GI recommendation. Plan for MPI stress test tomorrow. Subjective Date of service: 09/07/20 Principal diagnosis: SOB Interval history: Patient seen and examined. Medical records and medication list reviewed. No acute event overnight noted by the RN. Patient denies any chest pain but continue to complains of difficulty breathing along with nausea and vomiting Discussed plan of care at bedside with patient. Objective - Exam Narrative Exam: GENERAL: well-developed morbidly obese -Wallisian female lying on bed appeared to be in no discomfort. HEENT: Normocephalic. Atraumatic. No conjunctival congestion or icterus. Patient has moist mucous membranes. NECK: Supple. Trachea midline. CHEST/LUNGS: Diminished breath sounds auscultated bilaterally, breathing on nasal cannula. No wheezes HEART/CARDIOVASCULAR: Regular in rate and rhythm. S1 and S2 positive. ABDOMEN: Abdomen is soft, nontender. Patient has normal bowel sounds. SKIN: There is no rash. Warm and dry. NEURO: No focal motor deficit. Follows command. MUSCULOSKELETAL: No joint effusion or tenderness. EXTRIMITY: No edema, no cyanosis or clubbing. PSYCH: Cooperative. - Constitutional Vitals: Vital Signs - 12hr 09/07/20 06:55 Temperature 98.1 F Pulse Rate 102 H Respiratory 20 Rate Blood Pressure 179/89 O2 Sat by Pulse 97 Oximetry - Labs CBC & Chem 7: 09/07/20 07:15 09/07/20 07:15 Labs: Abnormal lab results 09/06/20 09/06/20 09/06/20 Range/Units 07:43 12:02 15:41 RDW (13.2-15.2) % Howell % (Auto) (0.0-7.3) % Glucose (65-100) mg/dL POC Glucose 276 H 226 H 195 H (70-105) mg/dL 09/07/20 09/07/20 09/07/20 Range/Units 07:15 07:15 07:47 RDW 15.4 H (13.2-15.2) % Howell % (Auto) 8.3 H (0.0-7.3) % Glucose 258 H (65-100) mg/dL POC Glucose 256 H (70-105) mg/dL HEART Score - HEART Score Troponin: Troponin T < 0.010 ng/mL (0.00-0.029) 09/05/20 03:15
--- NOTE | 2020-09-07 12:11 | Gastroenterology Consultation ---
History of Present Illness - Reason for Consult Consult date: 09/07/20 nausea/vomiting Requesting physician: CHARLES CLAROS - History of Present Illness This is a 49 yo female with pmh of SHANNAN, afib, CHF, PE (2007), morbid obesity, and DM admitted on 09/04 for SOB. Patient undergoing work up for SOB with cardiology. noted to have hypertensive urgency with BP 236/111 on admission. CTA chest negative for PE. GI consulted for nausea/vomiting. She denies any abdominal pain. Reports she did not have any nausea/vomiting prior to admission. She feels nausea mainly when she moves or gets up. She did not eat or drink much for the past 2 days. Noted to have vomiting yesterday but none this morning. Patient planned for stress test tomorrow. H/o cholecystectomy in the past. No other abdominal surgery history. No prior EGD or colonoscopy. medication list reviewed. Past History Past Medical History: diabetes, heart failure, hyperlipidemia, other (See HPI) Past Surgical History: cholecystectomy Social history: lives with family Family history: diabetes, hypertension Medications and Allergies Allergies Allergy/AdvReac Type Severity Reaction Status Date / Time No Known Allergies Allergy Verified 09/05/20 00:37 Active Meds: Active Medications Acetaminophen (Acetaminophen 325 Mg Tab) 650 mg PO Q6H PRN PRN Reason: Pain, Mild (1-3) Last Admin: 09/05/20 17:44 Dose: 650 mg Documented by: Al Hydrox/Mg Hydrox/Simethicone (Alum-Mag Hydroxide-Simethicone [id number]/5ml Oral Liqd 30 Ml) 30 ml PO Q4H PRN PRN Reason: Indigestion Alprazolam (Alprazolam 0.25 Mg Tab) 0.25 mg PO Q8H PRN PRN Reason: Anxiety Last Admin: 09/05/20 20:10 Dose: 0.25 mg Documented by: Aspirin (Aspirin Ec 81 Mg Tab) 81 mg PO QDAY [facility] Last Admin: 09/07/20 09:30 Dose: 81 mg Documented by: Carvedilol (Carvedilol 25 Mg Tab) 25 mg PO BID [facility] Last Admin: 09/07/20 09:30 Dose: 25 mg Documented by: Clonidine HCl (Clonidine 0.2 Mg Tab) 0.2 mg PO Q12HR [facility] Last Admin: 09/07/20 09:30 Dose: 0.2 mg Documented by: Enoxaparin Sodium (Enoxaparin 40 Mg/0.4 Ml Inj) 40 mg SUB-Q QDAY@2200 [facility]; Protocol Last Admin: 09/06/20 21:39 Dose: 40 mg Documented by: Furosemide (Furosemide 40 Mg/4 Ml Inj) 40 mg IV BID@0600,1800 [facility] Last Admin: 09/07/20 06:49 Dose: 40 mg Documented by: Hydralazine HCl (Hydralazine 100 Mg Tab) 100 mg PO TID [facility] Last Admin: 09/07/20 09:30 Dose: 100 mg Documented by: Hydralazine HCl (Hydralazine 20 Mg/1 Ml Inj) 10 mg IV Q30MIN PRN PRN Reason: Hypertension Insulin Human Lispro (Insulin Lispro 100 Unit/Ml) 0 unit SUB-Q AC [facility]; Protocol Last Admin: 09/07/20 09:29 Dose: Not Given Documented by: Losartan Potassium (Losartan 50 Mg Tab) 100 mg PO QDAY [facility] Last Admin: 09/07/20 09:30 Dose: 100 mg Documented by: Magnesium Hydroxide (Magnesium Hydroxide (Mom) Oral Liqd Udc) 30 ml PO Q4H PRN PRN Reason: Constipation Metoclopramide HCl (Metoclopramide 10 Mg/2 Ml Inj) 10 mg IV Q6H PRN PRN Reason: Nausea And Vomiting Last Admin: 09/06/20 21:44 Dose: 10 mg Documented by: Nitroglycerin (Nitroglycerin 0.4 Mg Tab Subl) 0.4 mg SL .Q5MIN PRN PRN Reason: Chest Pain Ondansetron HCl (Ondansetron 4 Mg/2 Ml Inj) 4 mg IV Q6H PRN PRN Reason: Nausea And Vomiting Last Admin: 09/06/20 16:04 Dose: 4 mg Documented by: Pantoprazole Sodium (Pantoprazole 40 Mg Inj) 40 mg IV BID [facility] Last Admin: 09/07/20 09:31 Dose: 40 mg Documented by: Potassium Chloride (Potassium Chloride Er 20 Meq Tab) 20 meq PO BID [facility] Last Admin: 09/07/20 09:31 Dose: 20 meq Documented by: Sodium Chloride (Sodium Chloride 0.9% 10 Ml Flush Syringe) 10 ml IV BID [facility] Last Admin: 09/07/20 09:31 Dose: 10 ml Documented by: Sodium Chloride (Sodium Chloride 0.9% 10 Ml Flush Syringe) 10 ml IV PRN PRN PRN Reason: LINE FLUSH Last Admin: 09/06/20 05:43 Dose: 10 ml Documented by: Review of Systems - Review of Systems All systems: negative Constitutional: no weight loss, no fever, no chills Ears, Nose, Throat: no difficulty swallowing Cardiovascular: no chest pain, no edema Gastrointestinal: nausea, vomiting, no abdominal pain, no coffee ground emesis, no melena, no hematochezia Musculoskeletal: no gait dysfunction Neurological: no weakness Psychiatric: no anxiety Hematologic/Lymphatic: no easy bruising Allergic/Immunologic: no wheezing Exam - Constitutional Vital Signs: Temp Pulse Resp BP Pulse Ox 98.1 F 102 H 20 179/89 97 09/07/20 06:55 09/07/20 06:55 09/07/20 06:55 09/07/20 06:55 09/07/20 06:55 General appearance: no acute distress - EENT Eyes: EOM intact ENT: hearing intact - Respiratory Respiratory effort: normal - Cardiovascular Rhythm: regular Heart Sounds: Present: S1 & S2 - Gastrointestinal General gastrointestinal: Present: soft, non-tender, non-distended - Neurologic Neurological: alert and oriented x3 - Psychiatric Psychiatric: appropriate mood/affect - Labs CBC & Chem 7: 09/07/20 07:15 09/07/20 07:15 Lab Results: Laboratory Results - last 24 hr 09/05/20 09/06/20 09/06/20 08:27 07:43 12:02 WBC RBC Hgb Hct MCV MCH MCHC RDW Plt Count Lymph % (Auto) Swain % (Auto) Eos % (Auto) Baso % (Auto) Lymph # (Auto) Swain # (Auto) Eos # (Auto) Baso # (Auto) Seg Neutrophils % Seg Neutrophils # Sodium Potassium Chloride Carbon Dioxide Anion Gap BUN Creatinine Estimated GFR BUN/Creatinine Ratio Glucose POC Glucose 276 H 226 H Calcium Coronavirus (PCR) Negative 09/06/20 09/07/20 09/07/20 15:41 07:15 07:15 WBC 6.3 RBC 4.44 Hgb 12.7 Hct 38.2 MCV 86 MCH 29 MCHC 33 RDW 15.4 H Plt Count 284 Lymph % (Auto) 28.3 Swain % (Auto) 8.3 H Eos % (Auto) 0.3 Baso % (Auto) 0.7 Lymph # (Auto) 1.8 Swain # (Auto) 0.5 Eos # (Auto) 0.0 Baso # (Auto) 0.0 Seg Neutrophils % 62.4 Seg Neutrophils # 3.9 Sodium 138 Potassium 4.4 Chloride 102.0 Carbon Dioxide 24 Anion Gap 16 BUN 14 Creatinine 0.9 Estimated GFR > 60 BUN/Creatinine Ratio 16 Glucose 258 H POC Glucose 195 H Calcium 8.7 Coronavirus (PCR) 09/07/20 07:47 WBC RBC Hgb Hct MCV MCH MCHC RDW Plt Count Lymph % (Auto) Swain % (Auto) Eos % (Auto) Baso % (Auto) Lymph # (Auto) Swain # (Auto) Eos # (Auto) Baso # (Auto) Seg Neutrophils % Seg Neutrophils # Sodium Potassium Chloride Carbon Dioxide Anion Gap BUN Creatinine Estimated GFR BUN/Creatinine Ratio Glucose POC Glucose 256 H Calcium Coronavirus (PCR) - Imaging CT Scan: report reviewed Assessment and Plan 49 yo female with pmh of SHANNAN, afib, CHF, PE (2007), morbid obesity, and DM admitted on 09/04 for SOB. Patient undergoing work up for SOB with cardiology. noted to have hypertensive crisis with BP 236/111 on admission. CTA chest negative for PE. GI consulted for nausea/vomiting. # Nausea/vomiting - work up so far with CT a/p without any acute abnormalities. No bowel obstruction - history of CCY in the past. - Normal LFTs on admission. - ddx including gastritis, 2/2 volume with CHF, 2/2 cardiac etiology vs gastroparesis. rec - continue with PPI bid - antiemetics prn. - consider EGD if persistent symptoms and after cardiac work up is complete. Planned for stress test tomorrow noted. Will also need to ensure her respiratory status is stable and optimized for sedation as she is still receiving IV diuresis. - discussed with primary team.
--- NOTE | 2020-09-07 17:28 | Progress Note ---
Assessment and Plan Plan for Lexiscan stress MPI in AM. NPO after midnight. Continue IV diuresis for now. Will optimize antihypertensive regimen as needed. Pt will ultimately need to be fitted with LifeVest prior to discharge. Continue SQ Lovenox for now. Plan to start OAC if pt is agreeable. GI recs noted. Possible EGD if no improvement in sx. Pt seen in conjunction with Dr. Jurgen Collins, who agrees with the assessment and plan of care. - Patient Problems (1) Gastritis Current Visit: Yes Status: Suspected (2) Acute on chronic HFrEF (heart failure with reduced ejection fraction) Current Visit: Yes Status: Acute (3) Cardiomyopathy Current Visit: Yes Status: Chronic (4) PAF (paroxysmal atrial fibrillation) Current Visit: Yes Status: Chronic (5) Hypertension Current Visit: Yes Status: Chronic Qualifiers: Hypertension type: essential hypertension Qualified Code(s): I10 - Essential (primary) hypertension (6) Diabetes mellitus Current Visit: Yes Status: Chronic (7) Morbid obesity Current Visit: Yes Status: Chronic (8) SHANNAN (obstructive sleep apnea) Current Visit: Yes Status: Chronic (9) History of pulmonary embolism Current Visit: Yes Status: Chronic Plan to address problem: 2007 Subjective Date of service: 09/07/20 Principal diagnosis: HFrEF Interval history: Lying flat in bed with no SOB upon assessment. C/o nausea this AM. No cardiac complaints. Tele reviewed - SR 100-110s, no events overnight. Objective Last Vital Signs Temp 98.2 F 09/07/20 17:01 Pulse 90 09/07/20 17:01 Resp 19 09/07/20 17:01 BP 150/80 09/07/20 17:01 Pulse Ox 99 09/07/20 17:01 - Physical Examination General: No Apparent Distress HEENT: Positive: EOMI, Normocephaly, Mucus Membranes Moist Neck: Positive: neck supple, trachea midline. Negative: JVD/HJR Cardiac: Positive: Regular Rhythm, S1/S2, Tachycardia. Negative: Audible Murmur Lungs: Positive: clear to auscultation Neuro: Positive: Grossly Intact Abdomen: Positive: Soft Skin: Negative: Rash Musculoskeletal: No Pain Extremities: Present: upper extr. pulses, lower extr. pulses, edema (trace BLE) - Labs and Meds CBC 09/07/20 Range/Units 07:15 WBC 6.3 (4.5-11.0) K/mm3 RBC 4.44 (3.65-5.03) M/mm3 Hgb 12.7 (10.1-14.3) gm/dl Hct 38.2 (30.3-42.9) % Plt Count 284 (140-440) K/mm3 Lymph # (Auto) 1.8 (1.2-5.4) K/mm3 [place] # (Auto) 0.5 (0.0-0.8) K/mm3 Eos # (Auto) 0.0 (0.0-0.4) K/mm3 Baso # (Auto) 0.0 (0.0-0.1) K/mm3 Comprehensive Metabolic Panel 09/07/20 Range/Units 07:15 Sodium 138 (137-145) mmol/L Potassium 4.4 (3.6-5.0) mmol/L Chloride 102.0 (98-107) mmol/L Carbon Dioxide 24 (22-30) mmol/L BUN 14 (7-17) mg/dL Creatinine 0.9 (0.6-1.2) mg/dL Glucose 258 H (65-100) mg/dL Calcium 8.7 (8.4-10.2) mg/dL - Imaging and Cardiology EKG: report reviewed, image reviewed Pharmacologic stress test: pending Echo: report reviewed (09/05/2020 - EF 30-35%, mild LVH) - Telemetry EKG Rhythm: Sinus Tachycardia - EKG Sinus rhythms and dysrhythmias: sinus tachycardia
[2020-09-07] MEDS: ENOXAPARIN 40 MG/0.4 ML INJ SUB-Q SCH (21:25)
[2020-09-08] MEDS: FUROSEMIDE 40 MG/4 ML INJ IV SCH (05:03)
[2020-09-08] MEDS: INSULIN LISPRO 100 UNIT/ML SUB-Q SCH ×4 (10:32→22:45)
[2020-09-08] MEDS: ASPIRIN EC 81 MG TAB PO SCH (10:32)
[2020-09-08] MEDS: PANTOPRAZOLE 40 MG INJ IV SCH ×2 (10:32→22:45)
[2020-09-08] MEDS: POTASSIUM CHLORIDE ER 20 MEQ TAB PO SCH ×2 (10:33→21:42)
[2020-09-08] MEDS: cloNIDine 0.2 MG TAB PO SCH ×2 (10:34→21:42)
[2020-09-08] MEDS: LOSARTAN 50 MG TAB PO SCH (10:34)
[2020-09-08] MEDS: carvediloL 25 MG TAB PO SCH ×2 (10:35→21:42)
[2020-09-08] MEDS: hydrALAZINE 100 MG TAB PO SCH ×3 (10:37→21:41)
[2020-09-08] MEDS: METOCLOPRAMIDE 10 MG/2 ML INJ IV PRN (11:58)
--- NOTE | 2020-09-08 13:51 | Gastroenterology Progress Note ---
Assessment and Plan 49 yo female with pmh of SHANNAN, afib, CHF, PE (2007), morbid obesity, and DM admitted on 09/04 for SOB. Patient undergoing work up for SOB with cardiology. noted to have hypertensive crisis with BP 236/111 on admission. CTA chest negative for PE. GI consulted for nausea/vomiting. # Nausea/vomiting - work up so far with CT a/p without any acute abnormalities. No bowel obstruction - history of CCY in the past. - Normal LFTs on admission. - ddx including gastritis, 2/2 volume with CHF, 2/2 cardiac etiology vs gastroparesis. rec - continue with PPI bid - antiemetics prn. - cardiac stress test cancelled due to weight over limit. - trial of clear liquids diet and advance as tolerated. - if persistent symptoms and cleared by cardiology, consider EGD on Friday. But, if tolerating diet, no need for inpatient EGD. Subjective Date of service: 09/08/20 Principal diagnosis: HFrEF Interval history: Patient's stress test cancelled due to her weight over the limit. She feels nausea mainly when moving about. No vomiting or abdominal pain. Objective - Constitutional Vitals: Temp Pulse Resp BP Pulse Ox 97.6 F 95 H 18 188/94 94 09/08/20 11:38 09/08/20 11:38 09/08/20 11:38 09/08/20 11:38 09/08/20 11:38 General appearance: no acute distress - EENT Eyes: EOM intact ENT: hearing intact - Respiratory Respiratory effort: normal - Cardiovascular Rhythm: regular Heart Sounds: Present: S1 & S2 - Gastrointestinal General gastrointestinal: Present: soft, non-tender, non-distended, normal bowel sounds - Neurologic Neurological: alert and oriented x3 - Labs CBC & Chem 7: 09/07/20 07:15 09/07/20 07:15 Labs: Laboratory Results - last 24 hr 09/07/20 09/07/20 09/08/20 17:07 21:16 07:31 POC Glucose 269 H 284 H 233 H TSH 09/08/20 09/08/20 07:35 11:36 POC Glucose 234 H TSH 2.400
--- NOTE | 2020-09-08 14:41 | Progress Note ---
Assessment and Plan --Hypertensive emergency Monitor blood pressure As needed hydralazine Resumed home antihypertensive. Adjust antihypertensive dose for better BP control Discussed medication compliance. -- Pulmonary edema with Acute hypoxic Respiratory Failure Due to underlying CHF, diuretics twice daily Serial chest x-ray Monitor potassium level while on furosemide --Covid PUI, ruled out with a negative test -- Acute on chronic systolic CHF (congestive heart failure), EF 30 to 35% Patient with elevated BNP and patient has a history of CHF with A. fib Aspirin, statin, losartan, and oxygen supplement if needed Cardiology consulted, follow recommendation -- Morbid (severe) obesity due to excess calories Discussed lifestyle modification Healthy diet, weight management regular exercise --Obesity hypoventilation syndrome, cannot rule out underlying sleep apnea Will use CPAP at bedtime --Elevated D-dimer, CTA chest negative for PE, lower extremity Doppler for any acute DVT -- Diabetes Monitor blood sugar with sliding scale Check hemoglobin A1c -- Gastritis Patient reported abdominal pain with nausea as needed pain medicine, CT abdomen pelvis without any acute intra-abdominal finding Continue antiemetics, PPI Will consult GI for persistent symptoms -- DVT prophylaxis Lovenox Brief history: 49-year-old female, history of hypertension, diabetes, CHF, atrial fibrillation (not on anticoagulation), PE (2007), morbid obesity, presents to ED with shortness of breath. Patient noted to have elevated BNP and elevated D-dimer but unable to do VQ scan because patient is overweight. CTA chest could not be done because iv got infiltrated. Patient admitted for possible PE/DVT pain CHF exacerbation Daily clinical course: 09/05/20: Continue therapeutic dose of Lovenox for now. Continue CHF protocol, lower extremity Dopplers negative for DVT We will attempt CTA of the chest again tomorrow Patient did not receive COVID-19 vaccine and due to her presenting complaint will Rule out for Covid Ordered for Covid test 09/06/20:. Pending CTA chest today. Patient continued to complains of nausea and vomiting. Will consult GI, continue antiemetics and PPI. Change diet to clear liquid. Covid test is negative. 2D echo showed EF of 30 to 35%. Continue Lasix IV, transfer to telemetry when bed available 09/07/20; CTA chest negative for any acute PE. Stop therapeutic dose of Lovenox and changed to DVT prophylaxis only. Continue IV diuresis, follow GI recommendation. Plan for MPI stress test tomorrow. 09/08/20; BP remains elevated. Cardiac stress test cancelled due to weight over limit. cont diuresis and neb treatment. CPAP at bedtime. trial of clear liquids diet and advance as tolerated. if persistent symptoms and cleared by cardiology, plan to consider EGD on Friday. But, if tolerating diet, no need for inpatient EGD. Subjective Date of service: 09/08/20 Principal diagnosis: SOB Interval history: Patient seen and examined. Medical records and medication list reviewed. No acute event overnight noted by the RN. Patient denies any chest pain but continue to complains of nausea Stress test canceled today due to weight limit Discussed plan of care at bedside with patient. Objective - Exam Narrative Exam: GENERAL: well-developed morbidly obese -Maltese female lying on bed appeared to be in no discomfort. HEENT: Normocephalic. Atraumatic. No conjunctival congestion or icterus. [place] ent has moist mucous membranes. NECK: Supple. Trachea midline. CHEST/LUNGS: Diminished breath sounds auscultated bilaterally, breathing on nasal cannula. No wheezes HEART/CARDIOVASCULAR: Regular in rate and rhythm. S1 and S2 positive. ABDOMEN: Abdomen is soft, nontender. Patient has normal bowel sounds. SKIN: There is no rash. Warm and dry. NEURO: No focal motor deficit. Follows command. MUSCULOSKELETAL: No joint effusion or tenderness. EXTRIMITY: No edema, no cyanosis or clubbing. PSYCH: Cooperative. - Constitutional Vitals: Vital Signs - 12hr 09/08/20 09/08/20 09/08/20 04:21 07:34 08:00 Temperature 99.0 F 98.8 F Pulse Rate 94 H 95 H 100 H Respiratory 18 18 Rate Blood Pressure 136/61 168/75 O2 Sat by Pulse 96 92 Oximetry 09/08/20 09/08/20 09/08/20 10:34 10:35 11:38 Temperature 97.6 F Pulse Rate 95 H 95 H 95 H Respiratory 18 Rate Blood Pressure 168/75 168/75 188/94 O2 Sat by Pulse 94 Oximetry 09/08/20 13:00 Temperature Pulse Rate 93 H Respiratory Rate Blood Pressure O2 Sat by Pulse Oximetry - Labs CBC & Chem 7: 09/07/20 07:15 09/07/20 07:15 Labs: Abnormal lab results 09/07/20 09/07/20 09/08/20 Range/Units 17:07 21:16 07:31 POC Glucose 269 H 284 H 233 H (70-105) mg/dL 09/08/20 Range/Units 11:36 POC Glucose 234 H (70-105) mg/dL HEART Score - HEART Score Troponin: Troponin T < 0.010 ng/mL (0.00-0.029) 09/05/20 03:15
[2020-09-08] MEDS: amLODIPine 10 MG TAB PO SCH (15:29)
--- NOTE | 2020-09-08 17:14 | Progress Note ---
Assessment and Plan Unable to complete stress test this AM due to body habitus. May consider ischemic eval as an outpatient. Awaiting LifeVest prior to discharge. Plan to start Eliquis for AF if no GI procedures planned. Otherwise stable cardiac status. Will transition to PO Lasix. Continue other present cardiac mgmt. Recommend increased ambulation. Pt seen in conjunction with Dr. Jurgen Collins, who agrees with the assessment and plan of care. - Patient Problems (1) Gastritis Current Visit: Yes Status: Suspected (2) Acute on chronic HFrEF (heart failure with reduced ejection fraction) Current Visit: Yes Status: Acute (3) Cardiomyopathy Current Visit: Yes Status: Chronic (4) PAF (paroxysmal atrial fibrillation) Current Visit: Yes Status: Chronic (5) Hypertension Current Visit: Yes Status: Chronic Qualifiers: Hypertension type: essential hypertension Qualified Code(s): I10 - Essential (primary) hypertension (6) Diabetes mellitus Current Visit: Yes Status: Chronic (7) Morbid obesity Current Visit: Yes Status: Chronic (8) SHANNAN (obstructive sleep apnea) Current Visit: Yes Status: Chronic (9) History of pulmonary embolism Current Visit: Yes Status: Chronic Plan to address problem: 2007 Subjective Date of service: 09/08/20 Principal diagnosis: HFrEF Interval history: Still complaining of nausea upon assessment. No new cardiac complaints. Tele reviewed - SR 80-90s, no events overnight. Objective Last Vital Signs Temp 98.3 F 09/08/20 16:19 Pulse 86 09/08/20 16:19 Resp 18 09/08/20 16:19 BP 145/82 09/08/20 16:19 Pulse Ox 92 09/08/20 16:20 - Physical Examination General: No Apparent Distress HEENT: Positive: EOMI, Normocephaly, Mucus Membranes Moist Neck: Positive: neck supple, trachea midline. Negative: JVD/HJR Cardiac: Positive: Reg Rate and Rhythm, S1/S2 Lungs: Positive: Decreased Breath Sounds (bilaterally) Neuro: Positive: Grossly Intact Abdomen: Positive: Soft Skin: Negative: Rash Musculoskeletal: No Pain Extremities: Present: upper extr. pulses, lower extr. pulses, edema (trace BLE) - Imaging and Cardiology EKG: report reviewed, image reviewed Echo: report reviewed (09/05/2020 - EF 30-35%, mild LVH) - Telemetry EKG Rhythm: Sinus Rhythm - EKG Sinus rhythms and dysrhythmias: sinus tachycardia
[2020-09-08] MEDS: ENOXAPARIN 40 MG/0.4 ML INJ SUB-Q SCH (21:43)
[2020-09-09] MEDS: FUROSEMIDE 40 MG TAB PO SCH ×2 (06:34→08:41)
[2020-09-09] MEDS: amLODIPine 10 MG TAB PO SCH (10:27)
[2020-09-09] MEDS: cloNIDine 0.2 MG TAB PO SCH ×2 (10:27→21:58)
[2020-09-09] MEDS: carvediloL 25 MG TAB PO SCH ×2 (10:27→21:58)
[2020-09-09] MEDS: ASPIRIN EC 81 MG TAB PO SCH (10:27)
[2020-09-09] MEDS: LOSARTAN 50 MG TAB PO SCH (10:27)
[2020-09-09] MEDS: PANTOPRAZOLE 40 MG INJ IV SCH (10:28)
[2020-09-09] MEDS: POTASSIUM CHLORIDE ER 20 MEQ TAB PO SCH (10:28)
[2020-09-09] MEDS: INSULIN LISPRO 100 UNIT/ML SUB-Q SCH ×4 (12:12→21:58)
[2020-09-09] MEDS: hydrALAZINE 100 MG TAB PO SCH ×3 (12:13→21:58)
[2020-09-09 15:38] LABS: Mean Corpuscular HGB Conc 31 % (30-34); Mean Corpuscular Volume 90 fl (79-97); Platelet Count 342 K/mm3 (140-440); Red Blood Count 4.55 M/mm3 (3.65-5.03); Red Cell Distribution Width 15.7 % (13.2-15.2)
[2020-09-09 15:40] LABS: Hemoglobin 12.6 gm/dl (10.1-14.3)
[2020-09-09 15:43] LABS: INR 1.05 (0.87-1.13)
[2020-09-09 15:44] LABS: Partial Thromboplastin Time 31.8 Sec. (24.2-36.6)
[2020-09-09] MEDS: APIXABAN 5 MG TAB PO SCH ×2 (16:27→21:58)
--- NOTE | 2020-09-09 16:36 | Progress Note ---
Assessment and Plan --Hypertensive emergency Monitor blood pressure As needed hydralazine Resumed home antihypertensive. Adjust antihypertensive dose for better BP control Discussed medication compliance. -- Pulmonary edema with Acute hypoxic Respiratory Failure Due to underlying CHF, diuretics twice daily Serial chest x-ray Monitor potassium level while on furosemide --Covid PUI, ruled out with a negative test -- Acute on chronic systolic CHF (congestive heart failure), EF 30 to 35% Patient with elevated BNP and patient has a history of CHF with A. fib Aspirin, statin, losartan, and oxygen supplement if needed Cardiology consulted, follow recommendation -- Morbid (severe) obesity due to excess calories Discussed lifestyle modification Healthy diet, weight management regular exercise --Obesity hypoventilation syndrome, cannot rule out underlying sleep apnea Will use CPAP at bedtime --Elevated D-dimer, CTA chest negative for PE, lower extremity Doppler for any acute DVT -- Diabetes Monitor blood sugar with sliding scale Check hemoglobin A1c -- Gastritis, improved Patient reported abdominal pain with nausea as needed pain medicine, CT abdomen pelvis without any acute intra-abdominal finding Continue antiemetics, PPI consulted GI for persistent symptoms - medical mx --RACQUEL, likely due to diuresis follow BMP, change lasix to po with reduced dose -- DVT prophylaxis Lovenox Brief history: 49-year-old female, history of hypertension, diabetes, CHF, atrial fibrillation (not on anticoagulation), PE (2007), morbid obesity, presents to ED with shortness of breath. Patient noted to have elevated BNP and elevated D-dimer but unable to do VQ scan because patient is overweight. CTA chest could not be done because iv got infiltrated. Patient admitted for possible PE/DVT pain CHF exacerbation Daily clinical course: 09/05/20: Continue therapeutic dose of Lovenox for now. Continue CHF protocol, lower extremity Dopplers negative for DVT We will attempt CTA of the chest again tomorrow Patient did not receive COVID-19 vaccine and due to her presenting complaint will Rule out for Covid Ordered for Covid test 09/06/20:. Pending CTA chest today. Patient continued to complains of nausea and vomiting. Will consult GI, continue antiemetics and PPI. Change diet to clear liquid. Covid test is negative. 2D echo showed EF of 30 to 35%. Continue Lasix IV, transfer to telemetry when bed available 09/07/20; CTA chest negative for any acute PE. Stop therapeutic dose of Lovenox and changed to DVT prophylaxis only. Continue IV diuresis, follow GI recommendation. Plan for MPI stress test tomorrow. 09/08/20; BP remains elevated. Cardiac stress test cancelled due to weight over limit. cont diuresis and neb treatment. CPAP at bedtime. trial of clear liquids diet and advance as tolerated. if persistent symptoms and cleared by cardiology, plan to consider EGD on Friday. But, if tolerating diet, no need for inpatient EGD. 09/09/20; patient tolerating diet, LifeVest has been delivered. start Eliquis for AF as no GI procedures has planned and patient's abdominal pain nausea improved. Will transition to PO Lasix. Creatinine 1.5 today, will repeat BMP tomorrow morning. We will hold potassium for now. Order for PT OT If CBC and BMP stable possible discharge tomorrow with LifeVest Subjective Date of service: 09/09/20 Principal diagnosis: HFrEF Interval history: Patient seen and examined. Medical records and medication list reviewed. No acute event overnight noted by the RN. Patient denies any chest pain but continue to complains of nausea lifevest has delivered Discussed plan of care at bedside with patient. Objective - Exam Narrative Exam: GENERAL: well-developed morbidly obese -[place] female lying on bed appeared to be in no discomfort. HEENT: Normocephalic. Atraumatic. No conjunctival congestion or icterus. Patient has moist mucous membranes. NECK: Supple. Trachea midline. CHEST/LUNGS: Diminished breath sounds auscultated bilaterally, breathing in RA. No wheezes HEART/CARDIOVASCULAR: Regular in rate and rhythm. S1 and S2 positive. ABDOMEN: Abdomen is soft, nontender. Patient has normal bowel sounds. SKIN: There is no rash. Warm and dry. NEURO: No focal motor deficit. Follows command. MUSCULOSKELETAL: No joint effusion or tenderness. EXTRIMITY: No edema, no cyanosis or clubbing. PSYCH: Cooperative. - Constitutional Vitals: Vital Signs - 12hr 09/09/20 09/09/20 09/09/20 07:57 09:00 15:47 Temperature 98.4 F 98.7 F Pulse Rate 85 67 67 Respiratory 20 18 Rate Blood Pressure 176/87 154/78 O2 Sat by Pulse 91 98 Oximetry - Labs CBC & Chem 7: 09/10/20 04:55 09/10/20 04:55 Labs: Abnormal lab results 09/08/20 09/09/20 09/09/20 Range/Units 21:22 07:55 11:45 RDW (13.2-15.2) % Creatinine (0.6-1.2) mg/dL POC Glucose 251 H 183 H 224 H (70-105) mg/dL 09/09/20 09/09/20 09/09/20 Range/Units 14:28 14:28 15:44 RDW 15.7 H (13.2-15.2) % Creatinine 1.5 H D (0.6-1.2) mg/dL POC Glucose 266 H (70-105) mg/dL HEART Score - HEART Score Troponin: Troponin T < 0.010 ng/mL (0.00-0.029) 09/05/20 03:15
--- NOTE | 2020-09-09 17:45 | Gastroenterology Progress Note ---
Assessment and Plan 49 yo female with pmh of SHANNAN, afib, CHF, PE (2007), morbid obesity, and DM admitted on 09/04 for SOB. Patient undergoing work up for SOB with cardiology. noted to have hypertensive crisis with BP 236/111 on admission. CTA chest negative for PE. GI consulted for nausea/vomiting. # Nausea/vomiting - work up so far with CT a/p without any acute abnormalities. No bowel obstruction - history of CCY in the past. - Normal LFTs on admission. - ddx including gastritis, 2/2 volume with CHF, 2/2 cardiac etiology vs gastroparesis. - tolerating diet. rec - ok for discharge with PPI PO per GI standpoint - no additional GI recommendations. - will sign off. Subjective Date of service: 09/09/20 Principal diagnosis: HFrEF Interval history: Patient doing well. Tolerated regular diet. Objective - Constitutional Vitals: Temp Pulse Resp BP Pulse Ox 98.7 F 67 18 154/78 98 09/09/20 15:47 09/09/20 15:47 09/09/20 15:47 09/09/20 15:47 09/09/20 15:47 General appearance: no acute distress - EENT Eyes: EOM intact ENT: hearing intact - Respiratory Respiratory effort: normal - Cardiovascular Rhythm: regular Heart Sounds: Present: S1 & S2 - Gastrointestinal General gastrointestinal: Present: soft, non-tender, non-distended - Integumentary Integumentary: Present: clear, warm - Neurologic Neurological: alert and oriented x3 - Psychiatric Psychiatric: appropriate mood/affect - Labs CBC & Chem 7: 09/09/20 14:28 09/09/20 14:28 Labs: Laboratory Results - last 24 hr 09/08/20 09/09/20 09/09/20 21:22 07:55 11:45 WBC RBC Hgb Hct MCV MCH MCHC RDW Plt Count PT INR APTT Creatinine Estimated GFR POC Glucose 251 H 183 H 224 H 09/09/20 09/09/20 09/09/20 14:28 14:28 14:28 WBC 6.0 RBC 4.55 Hgb 12.6 Hct 41.0 MCV 90 MCH 28 MCHC 31 RDW 15.7 H Plt Count 342 PT 14.3 INR 1.05 APTT 31.8 Creatinine 1.5 H D Estimated GFR 45 POC Glucose 09/09/20 15:44 WBC RBC Hgb Hct MCV MCH MCHC RDW Plt Count PT INR APTT Creatinine Estimated GFR POC Glucose 266 H
[2020-09-10 05:47] LABS: Hematocrit 40.6 % (30.3-42.9); Hemoglobin 13.1 gm/dl (10.1-14.3); Mean Corpuscular HGB Conc 32 % (30-34); Mean Corpuscular Volume 89 fl (79-97); Platelet Count 282 K/mm3 (140-440); Red Blood Count 4.56 M/mm3 (3.65-5.03); Red Cell Distribution Width 15.5 % (13.2-15.2)
[2020-09-10 05:53] LABS: Calcium 8.9 mg/dL (8.4-10.2)
[2020-09-10] MEDS ORDERED: PANTOPRAZOLE 40 MG TAB PO SCH (07:30)
[2020-09-10 08:33] VITALS: BP 147/64
[2020-09-10] MEDS ORDERED: FUROSEMIDE 40 MG TAB PO SCH (10:00)
[2020-09-10] MEDS ORDERED: INSULIN NPH/REGULAR 70/30 INJ SUB-Q SCH (10:00)
[2020-09-10] MEDS: LOSARTAN 50 MG TAB PO SCH (10:03)
[2020-09-10] MEDS: amLODIPine 10 MG TAB PO SCH (10:04)
[2020-09-10] MEDS: carvediloL 25 MG TAB PO SCH (10:04)
[2020-09-10] MEDS: hydrALAZINE 100 MG TAB PO SCH (10:04)
[2020-09-10] MEDS: cloNIDine 0.2 MG TAB PO SCH (10:04)
[2020-09-10] MEDS: APIXABAN 5 MG TAB PO SCH (10:04)
[2020-09-10] MEDS: INSULIN LISPRO 100 UNIT/ML SUB-Q SCH ×2 (10:05→13:12)
--- NOTE | 2020-09-10 13:47 | Discharge Summary ---
Providers - Providers Date of Admission: 09/05/20 15:50 Date of discharge: 09/10/20 Attending physician: CHARLES CLAROS 09/05/20 04:04 Consult to Dietitian/Nutrition [CONS] Routine Physician Instructions: Reason For Exam: Reason for Consult: morbid obesity Consult to Physician [CONS] Routine Comment: Consulting Provider: VERA EWING Physician Instructions: Reason For Exam: chf 09/06/20 14:20 Consult to Physician [CONS] Routine Comment: Consulting Provider: CARLIN LUCAS Physician Instructions: Reason For Exam: nausea vomiting 09/09/20 16:34 Physical Therapy Evaluation and Treat [CONS] Routine Comment: Reason For Exam: Debility Primary care physician: LARD REFINER Hospitalization Condition: Stable Pertinent studies: Chest x-ray, chest CT, abdomen pelvis CT, lower extremity venous Doppler, chest CTA Hospital course: 49-year-old female, history of hypertension, diabetes, CHF, atrial fibrillation (not on anticoagulation), PE (2007), morbid obesity, presents to ED with shortness of breath. Patient noted to have elevated BNP and elevated D-dimer but unable to do VQ scan because patient is overweight. CTA chest could not be done because iv got infiltrated. Patient admitted for possible PE/DVT pain CHF exacerbation Daily clinical course: 09/05/20: Continue therapeutic dose of Lovenox for now. Continue CHF protocol, lower extremity Dopplers negative for DVT We will attempt CTA of the chest again tomorrow Patient did not receive COVID-19 vaccine and due to her presenting complaint will Rule out for Covid Ordered for Covid test 09/06/20:. Pending CTA chest today. Patient continued to complains of nausea and vomiting. Will consult GI, continue antiemetics and PPI. Change diet to clear liquid. Covid test is negative. 2D echo showed EF of 30 to 35%. Continue Lasix IV, transfer to telemetry when bed available 09/07/20; CTA chest negative for any acute PE. Stop therapeutic dose of Lovenox and changed to DVT prophylaxis only. Continue IV diuresis, follow GI recommendation. Plan for MPI stress test tomorrow. 09/08/20; BP remains elevated. Cardiac stress test cancelled due to weight over limit. cont diuresis and neb treatment. CPAP at bedtime. trial of clear liquids diet and advance as tolerated. if persistent symptoms and cleared by cardiology, plan to consider EGD on Friday. But, if tolerating diet, no need for inpatient EGD. 09/09/20; patient tolerating diet, LifeVest has been delivered. start Eliquis for AF as no GI procedures has planned and patient's abdominal pain nausea improved. Will transition to PO Lasix. Creatinine 1.5 today, will repeat BMP tomorrow morning. We will hold potassium for now. Order for PT OT If CBC and BMP stable possible discharge tomorrow with LifeVest. 09/10/20; Cr stable. added NPH 70/30. A1c >12. Clinically stable, tolerating diet. Resting on RA. Will d/c home today with outpt f/u. patient is agreeable with the plan. Discharge plan/diagnosis/medications/postdischarge follow up throughly discussed with patient's daughter and with her in details and they verbalized understanding. Disposition: [id number] HOME [facility] Final Discharge Diagnosis (Prints w/discharge instructions): --Hypertensive emergency. -- Pulmonary edema with Acute hypoxic Respiratory Failure. --Covid PUI, ruled out with a negative test. -- Acute on chronic systolic CHF (congestive heart failure), EF 30 to 35%. -- Morbid (severe) obesity due to excess calories. --Obesity hypoventilation syndrome, cannot rule out underlying sleep apnea, need outpt sleep study. --Elevated D-dimer, CTA chest negative for PE, lower extremity Doppler for any acute DVT. -- Diabetes type 2, a1c 12.6. -- Gastritis, improved, on PPI. --RACQUEL, likely due to diuresis, creatinine stable. --Paroxysmal atrial fibrillation, placed on Eliquis Time spent for discharge: 36 minutes Core Measure Documentation - Palliative Care Palliative Care/ Comfort Measures: Not Applicable - Core Measures Any of the following diagnoses?: none Exam - Physical Exam Narrative exam: GENERAL: well-developed morbidly obese -Turkish female lying on bed appeared to be in no discomfort. HEENT: Normocephalic. Atraumatic. No conjunctival congestion or icterus. Patient has moist mucous membranes. NECK: Supple. Trachea midline. CHEST/LUNGS: Diminished breath sounds auscultated bilaterally, breathing in RA. No wheezes HEART/CARDIOVASCULAR: Regular in rate and rhythm. S1 and S2 positive. ABDOMEN: Abdomen is soft, nontender. Patient has normal bowel sounds. SKIN: There is no rash. Warm and dry. NEURO: No focal motor deficit. Follows command. MUSCULOSKELETAL: No joint effusion or tenderness. EXTRIMITY: No edema, no cyanosis or clubbing. PSYCH: Cooperative. - Constitutional Vitals: Temp Pulse Resp BP Pulse Ox 98.7 F 68 19 147/64 94 09/10/20 08:03 09/10/20 10:00 09/10/20 08:03 09/10/20 08:03 09/10/20 08:03 Plan Activity: advance as tolerated Weight Bearing Status: Weight Bear as Tolerated Diet: low fat, low salt, diabetic Special Instructions: record blood sugar diary Additional Instructions: Please be compliant with her medication. Check your blood glucose before meals and at bedtime. Please maintain the blood pressure and blood glucose diary. Follow-up with assisted living home director in 1 week. Repeat BMP in 1 week Follow up with: PRIMARY CARE, [Primary Care Provider] - 3-5 Days DEANA QUIJANO MD [Staff Physician] - 7 Days Prescriptions: amLODIPine 10 mg PO QDAY #30 tablet hydrALAZINE [Apresoline TAB] 100 mg PO TID #90 tab cloNIDine [Catapres] 0.2 mg PO Q12HR #60 tablet carvediloL [Coreg] 25 mg PO BID #60 tablet Losartan [Cozaar] 100 mg PO QDAY #30 tablet Apixaban [Eliquis] 5 mg PO Q12HR #60 tablet Lispro Insulin [HumaLOG] 0 unit SUB-Q ACHS 30 Days ISOSORBIDE MONOnitrate [Imdur ER] 30 mg PO QDAY #30 tablet Furosemide [Lasix TAB] 40 mg PO QDAY #60 tablet Insulin NPH/Regular [NovoLIN 70/30] 5 unit SUB-Q BIDDIAB 30 Days Pantoprazole [Protonix TAB] 40 mg PO QDAC #30 tablet Other Discharge Orders: Glucometer (Amb) Location: None Selected Glucometer supplies[Amb] Location: None Selected
== END 2020-09-10 17:55 | disposition home health service (06) | DRG 291 ==
LOC: ED 19:23 → 4A 09-05 03:43 → OBSVTOIN 09-05 15:50 → 3A 09-05 21:01 → 4A 09-07 16:52
PROVIDERS: ADMIT Internal Medicine Geriatric Medicine; ATTEND Internal Medicine
PROC: 5A09357 Assistance with Respiratory Ventilation, Less than 24 Consecutive Hours, Continuous Positive Airway Pressure (ICD-10-PCS; principal; 2020-09-06)
DX: I11.0 Hypertensive heart disease with heart failure (principal); J96.01 Acute respiratory failure with hypoxia; I16.1 Hypertensive emergency; Z68.44 Body mass index [BMI] 60.0-69.9, adult; N17.9 Acute kidney failure, unspecified; E66.2 Morbid (severe) obesity with alveolar hypoventilation; Z71.3 Dietary counseling and surveillance; K29.70 Gastritis, unspecified, without bleeding; I42.9 Cardiomyopathy, unspecified; E11.9 Type 2 diabetes mellitus without complications; Z86.711 Personal history of pulmonary embolism; E78.00 Pure hypercholesterolemia, unspecified; I50.43 Acute on chronic combined systolic (congestive) and diastolic (congestive) heart failure; Z20.822 Contact with and (suspected) exposure to COVID-19; I48.0 Paroxysmal atrial fibrillation
CPT/HCPCS: 36415; 71046; 71275; 74176; 80048; 80053; 81001; 82565; 82962; 83036; 83880; 84443; 84484; 85025; 85027; 85379; 85610; 85730; 93005; 93306; 93970; 94660; 96365; 96375; G0378; C9113; J0360; J1650; J1815; J1940; J2405; J2765; Q9967; U0003

== ENCOUNTER 2020-10-27 14:48 | Emergency (ER) | payer MEDICARE ==
[2020-10-27] MEDS ORDERED: ONDANSETRON 4 MG/2 ML INJ ONE (16:24)
[2020-10-27] MEDS ORDERED: ONDANSETRON 4 MG/2 ML INJ IV ONE (16:43)
--- NOTE | 2020-10-27 16:49 | Emergency Department Report ---
- General Chief complaint: Hyperglycemia Stated complaint: HYPERGLYCEMIA Time Seen by Provider: 10/27/20 16:32 Source: patient, EMS Mode of arrival: Wheelchair Limitations: Physical Limitation - History of Present Illness Initial comments: 50-year-old female, history of hypertension, diabetes, CHF (EF 30-35%), paroxysmal atrial fibrillation, PE (2007), morbid obesity, CVA with right-sided weakness, presents to ED with elevated glucose. States her home health nurse checked her glucose during today's visit and it was elevated, so patient came to the ER. Patient states her glucose has been elevated for "quite some time. " Patient reports some nausea and vomiting. She denies fever or cough. Patient has NOT been vaccinated against COVID-19. -: unknown Severity: moderate Consistency: constant Improves with: none Worsens with: none Associated Symptoms: nausea/vomiting. denies: fever/chills - Related Data Previous Rx's Medication Instructions Recorded Last Taken Type Apixaban [Eliquis] 5 mg PO Q12HR #60 tablet 09/10/20 Unknown Rx Furosemide [Lasix TAB] 40 mg PO QDAY #60 tablet 09/10/20 Unknown Rx ISOSORBIDE MONOnitrate [Imdur ER] 30 mg PO QDAY #30 tablet 09/10/20 Unknown Rx Insulin NPH/Regular [NovoLIN 70/30] 5 unit SUB-Q BIDDIAB 30 Days 09/10/20 Unknown Rx Lispro Insulin [HumaLOG] 0 unit SUB-Q ACHS 30 Days 09/10/20 Unknown Rx Losartan [Cozaar] 100 mg PO QDAY #30 tablet 09/10/20 Unknown Rx Pantoprazole [Protonix TAB] 40 mg PO QDAC #30 tablet 09/10/20 Unknown Rx amLODIPine 10 mg PO QDAY #30 tablet 09/10/20 Unknown Rx carvediloL [Coreg] 25 mg PO BID #60 tablet 09/10/20 Unknown Rx cloNIDine [Catapres] 0.2 mg PO Q12HR #60 tablet 09/10/20 Unknown Rx hydrALAZINE [Apresoline TAB] 100 mg PO TID #90 tab 09/10/20 Unknown Rx Allergies Allergy/AdvReac Type Severity Reaction Status Date / Time No Known Allergies Allergy Verified 09/05/20 00:37 ED Review of Systems ROS: Stated complaint: HYPERGLYCEMIA Other details as noted in HPI Comment: All other systems reviewed and negative Constitutional: denies: chills, fever Respiratory: denies: cough, shortness of breath Gastrointestinal: nausea, vomiting. denies: abdominal pain ED Past Medical Hx - Past Medical History Previous Medical History?: Yes Hx Hypertension: Yes Hx Congestive Heart Failure: Yes Hx Diabetes: Yes Additional medical history: AFIB, SHANNAN, high cholesterol - Surgical History Past Surgical History?: Yes Hx Cholecystectomy: Yes - Social History Smoking Status: Never Smoker - Medications Home Medications: Home Medications Medication Instructions Recorded Confirmed Last Taken Type Apixaban [Eliquis] 5 mg PO Q12HR #60 tablet 09/10/20 Unknown Rx Furosemide [Lasix TAB] 40 mg PO QDAY #60 tablet 09/10/20 Unknown Rx ISOSORBIDE MONOnitrate [Imdur ER] 30 mg PO QDAY #30 tablet 09/10/20 Unknown Rx Insulin NPH/Regular [NovoLIN 70/30] 5 unit SUB-Q BIDDIAB 30 Days 09/10/20 Un known Rx Lispro Insulin [HumaLOG] 0 unit SUB-Q ACHS 30 Days 09/10/20 Unknown Rx Losartan [Cozaar] 100 mg PO QDAY #30 tablet 09/10/20 Unknown Rx Pantoprazole [Protonix TAB] 40 mg PO QDAC #30 tablet 09/10/20 Unknown Rx amLODIPine 10 mg PO QDAY #30 tablet 09/10/20 Unknown Rx carvediloL [Coreg] 25 mg PO BID #60 tablet 09/10/20 Unknown Rx cloNIDine [Catapres] 0.2 mg PO Q12HR #60 tablet 09/10/20 Unknown Rx hydrALAZINE [Apresoline TAB] 100 mg PO TID #90 tab 09/10/20 Unknown Rx ED Physical Exam - General Limitations: Physical Limitation General appearance: alert, in no apparent distress, obese - Head Head exam: Present: atraumatic, normocephalic - Eye Eye exam: Present: normal appearance, EOMI - ENT ENT exam: Present: normal exam - Neck Neck exam: Present: normal inspection - Respiratory Respiratory exam: Present: normal lung sounds bilaterally. Absent: respiratory distress - Cardiovascular Cardiovascular Exam: Present: regular rate, normal rhythm - GI/Abdominal GI/Abdominal exam: Present: soft. Absent: distended, tenderness - Extremities Exam Extremities exam: Present: normal inspection - Neurological Exam Neurological exam: Present: alert, oriented X3, motor sensory deficit (Baseline right-sided deficits due to prior CVA) - Psychiatric Psychiatric exam: Present: normal affect, normal mood - Skin Skin exam: Present: warm, dry, intact, normal color ED Course Vital Signs 10/27/20 10/27/20 10/27/20 15:20 16:29 16:31 Temperature 97.5 F L Pulse Rate 88 87 81 Respiratory 20 23 21 Rate Blood Pressure 138/84 Blood Pressure 137/74 [Right] O2 Sat by Pulse 98 96 96 Oximetry 10/27/20 10/27/20 10/27/20 16:45 17:01 17:15 Temperature Pulse Rate 81 81 80 Respiratory 22 14 19 Rate Blood Pressure 143/85 148/81 150/79 Blood Pressure [Right] O2 Sat by Pulse 95 93 93 Oximetry 10/27/20 10/27/20 10/27/20 17:31 17:45 18:01 Temperature Pulse Rate 77 78 76 Respiratory 14 12 15 Rate Blood Pressure 162/81 171/84 160/84 Blood Pressure [Right] O2 Sat by Pulse 95 95 96 Oximetry 10/27/20 10/27/20 10/27/20 18:05 18:15 18:31 Temperature Pulse Rate 79 77 82 Respiratory 17 16 15 Rate Blood Pressure 160/84 155/93 173/89 Blood Pressure [Right] O2 Sat by Pulse 95 95 97 Oximetry 10/27/20 10/27/20 10/27/20 18:45 19:01 19:15 Temperature Pulse Rate 84 80 82 Respiratory 16 14 15 Rate Blood Pressure 148/85 161/87 137/83 Blood Pressure [Right] O2 Sat by Pulse 96 96 95 Oximetry 10/27/20 10/27/20 10/27/20 19:31 19:45 20:01 Temperature Pulse Rate 83 77 82 Respiratory 16 16 17 Rate Blood Pressure 147/90 162/87 162/91 Blood Pressure [Right] O2 Sat by Pulse 95 96 95 Oximetry 10/27/20 10/27/20 10/27/20 20:15 20:31 20:45 Temperature Pulse Rate 77 84 82 Respiratory 15 17 16 Rate Blood Pressure 161/89 160/86 155/86 Blood Pressure [Right] O2 Sat by Pulse 93 93 93 Oximetry 10/27/20 10/27/20 10/27/20 21:01 21:15 21:31 Temperature Pulse Rate 87 84 84 Respiratory 17 19 17 Rate Blood Pressure 148/88 166/89 182/86 Blood Pressure [Right] O2 Sat by Pulse 92 93 92 Oximetry 10/27/20 10/27/20 10/27/20 21:45 22:01 22:15 Temperature Pulse Rate 85 88 92 H Respiratory 19 17 18 Rate Blood Pressure 160/85 166/89 163/83 Blood Pressure [Right] O2 Sat by Pulse 91 93 94 Oximetry 10/27/20 10/27/20 10/28/20 22:31 22:45 00:25 Temperature Pulse Rate 86 90 Respiratory 16 18 Rate Blood Pressure 151/78 139/78 Blood Pressure [Right] O2 Sat by Pulse 95 96 98 Oximetry ED Medical Decision Making - Lab Data Result diagrams: 10/27/20 17:10 10/27/20 17:10 - Medical Decision Making 50-year-old female presents to ED with hyperglycemia. Glucose of 602. Patient is not in DKA. Patient given IV fluids, 16 units of insulin. Patient had improvement of her glucose and will be discharged home at this time. Patient states that she has not run out of her insulin as she does have insulin at home. Outpatient follow-up advised, return precautions given. - Differential Diagnosis Hyperglycemia, DKA Critical care attestation.: If time is entered above; I have spent that time in minutes in the direct care of this critically ill patient, excluding procedure time. ED Disposition Clinical Impression: Hyperglycemia Disposition: 01 HOME / SELF CARE / HOMELESS Is pt being admited?: No Condition: Stable Instructions: Hyperglycemia, [id number] Referrals: PRIMARY CARE, [Primary Care Provider] - 3-5 Days Forms: Accompanied Note, Work/School Release Form(ED) Time of Disposition: 22:45
[2020-10-27 17:26] LABS: Basophils % (Auto) 0.8 % (0.0-1.8); Eosinophils % (Auto) 0.9 % (0.0-4.3); Hematocrit 35.3 % (30.3-42.9); Hemoglobin 11.5 gm/dl (10.1-14.3); Lymphocytes # (Auto) 1.8 K/mm3 (1.2-5.4); Lymphocytes % (Auto) 32.7 % (13.4-35.0); Mean Corpuscular HGB Conc 33 % (30-34); Mean Corpuscular Volume 87 fl (79-97); Monocytes # (Auto) 0.6 K/mm3 (0.0-0.8); Monocytes % (Auto) 10.9 % (0.0-7.3); Platelet Count 316 K/mm3 (140-440); Red Blood Count 4.05 M/mm3 (3.65-5.03); Red Cell Distribution Width 15.1 % (13.2-15.2)
[2020-10-27] MEDS ORDERED: SODIUM CHLORIDE 0.9% 1000 ML 1,000 ML IV ONE (17:38)
[2020-10-27] MEDS ORDERED: INSULIN REGULAR, HUMAN 100 UNITS/1 ML IV ONE ×2 (17:38→19:46)
[2020-10-27 17:40] LABS: Calcium 8.6 mg/dL (8.4-10.2)
[2020-10-28 00:25] VITALS: BP 139/78
== END 2020-10-28 00:30 | disposition home or self-care (01) ==
LOC: ED 14:48
DX: E11.65 Type 2 diabetes mellitus with hyperglycemia (principal); R11.2 Nausea with vomiting, unspecified; I11.0 Hypertensive heart disease with heart failure; I50.9 Heart failure, unspecified; E78.00 Pure hypercholesterolemia, unspecified; I48.91 Unspecified atrial fibrillation; Z90.49 Acquired absence of other specified parts of digestive tract; Z79.01 Long term (current) use of anticoagulants; Z79.899 Other long term (current) drug therapy
CPT/HCPCS: 36415; 80048; 82010; 82805; 82962; 84703; 85025; 96361; 96374; 96375; 96376; 99284; J2405; J7030; J1815